=== PATIENT | female | born 1990 | race Two or more races ===

== ENCOUNTER 2024-02-12 15:26 | Emergency (ER) | payer SELFPAY ==
[~2024-02-12] VITALS: Ht 170.2 cm; Wt 71.7 kg
[2024-02-12] MEDS: IV NORMAL SALINE 1000 ML BAG IV ONE ×2 (16:17→16:31)
[2024-02-12] MEDS ORDERED: ONDANSETRON 4 MG/2 ML VIAL ONE (16:18)
[2024-02-12] MEDS ORDERED: HYDROMORPHONE 1 MG/1 ML DISP.SYRIN ONE (16:18)
[2024-02-12] MEDS: HYDROMORPHONE 1 MG/1 ML DISP.SYRIN IV ONE (16:22)
[2024-02-12] MEDS: ONDANSETRON 4 MG/2 ML VIAL IV ONE (16:26)
[2024-02-12] MEDS ORDERED: CEFTRIAXONE /D5W 50ML IVPB **ER PYXIS IV ONE (16:29)
[2024-02-12] MEDS ORDERED: METRONIDAZOLE 500 MG/NS 100ML 100 ML IV ONE (16:29)
[2024-02-12] MEDS: METRONIDAZOLE 500 MG/NS 100 ML PIGGYBACK IV ONE (16:31)
[2024-02-12] MEDS: CEFTRIAXONE 1 G in IV DEXTROSE 5% 50 ML IV ONE (16:31)
[2024-02-12 16:32] LABS: BASOPHILS % (AUTO) 0.2 % (0.0-2.0); EOSINOPHILS # (AUTO) 0.1 K/uL (0.0-0.7); EOSINOPHILS % (AUTO) 0.8 % (0.0-7.0); HEMATOCRIT 33.8 % (31.2-41.9); HEMOGLOBIN 11.4 g/dL (10.9-14.3); LYMPHOCYTES # (AUTO) 1.1 K/uL (0.8-4.8); LYMPHOCYTES % (AUTO) 9.4 % (20.5-51.5); MEAN CORPUSCULAR HEMOGLOBIN 29.1 uug (24.7-32.8); MEAN CORPUSCULAR HGB CONC 34 g/dL (32.3-35.6); MEAN CORPUSCULAR VOLUME 86.6 fL (75.5-95.3); MONOCYTES # (AUTO) 0.7 K/uL (0.1-1.30); NEUTROPHILS # (AUTO) 10.1 K/uL (1.8-8.9); NEUTROPHILS % (AUTO) 83.6 % (38.5-71.5); PLATELET COUNT (AUTO) 377 K/uL (179-408); RED CELL DISTRIBUTION WIDTH 13.1 % (12.3-17.7); WHITE BLOOD COUNT (AUTO) 12.1 K/uL (3.8-11.8)
[2024-02-12 16:33] LABS: DIFFERENTIAL COMMENT 1
[2024-02-12 16:39] LABS: CALCIUM 9.4 mg/dL (8.5-10.1); POTASSIUM 4.2 mmol/L (3.5-5.1)
[2024-02-12 16:44] LABS: ALBUMIN 3.1 g/dL (3.4-5.0); BILIRUBIN,DIRECT 0.2 mg/dL (0.0-0.2); BILIRUBIN,TOTAL 0.7 mg/dL (0.2-1.0); TOTAL PROTEIN, SERUM 8.5 g/dL (6.4-8.2)
[2024-02-12 16:44] LABS: *BILIRUBIN,URIN 1+ (NEGATIVE); *BLOOD, URINE 3+ (NEGATIVE); *CLARITY,URINE CLOUDY (CLEAR); *COLOR,URINE RED (YELLOW); *KETONES,URINE 1+ (NEGATIVE); *PROTEIN,URINE 3+ (NEGATIVE); LEUKOCYTE ESTERASE ,URINE NEGATIVE (NEGATIVE); NITRITE, URINE NEGATIVE (NEGATIVE); PH,URINE 5.5 (5.0-8.0); UGLUCOSE 2+ (NEGATIVE)
[2024-02-12 17:15] LABS: BACTERIA,URINE MANY /HPF (NONE SEEN); SQUAMOUS EPITHELIAL CELL,UR MODERATE /HPF (NONE SEEN); WBC,URINE 0-3 /HPF (0-3)
[2024-02-12 17:16] LABS: RBC,URINE TNTC /HPF (0-3)
[2024-02-12] MEDS ORDERED: HYDR-3980 PO (18:13)
[2024-02-12] MEDS ORDERED: IBUP-1957 PO (18:13)
[2024-02-12] MEDS ORDERED: DOXY-226 PO (18:13)
[2024-02-12 18:31] VITALS: BP 112/76; TEMP 99.8; O2SAT 98
== END 2024-02-12 18:33 | disposition home or self-care (01) ==
LOC: ER 15:37
DX: N71.0 Acute inflammatory disease of uterus (principal); R10.2 Pelvic and perineal pain; Z79.899 Other long term (current) drug therapy
CPT/HCPCS: 99285; 74176; 96365; 76856; 96375; 80076; 80048; 81001; 83690; 85025; 85730; 87040 ×2; 84702; 36415; 93005; 96368; 83605; J0696; J3490; J2405; J1171; J7040; A4606; A4663